=== PATIENT | female | born 1950 | race Caucasian/White ===

== ENCOUNTER 2017-01-03 12:35 | Emergency (ER) | payer BC, MEDICARE ==
--- NOTE | ~2017-01-03 | CR63 ---
[facility]. [facility] A Service of [facility] & [facility] RADIOLOGY TEXT RESULTS PATIENT: AUBREE MARCANO LOCATION: SED : 50 UNIT #: [id number] AGE: [address]: German Troncoso MD SEX: F ORDER DR: [id number] [place] [id number] E MR#: [id number] Acc #: [id number] NAME: AUBREE MARCANO. : 1950 SEX: F STUDY DATE/TIME: 01/03/2017 14:18 UNIT: SED ROOM: STUDY DESCRIPTION: CR Chest 2 View Attending Physician: German Troncoso M.D. Ordering Physician: German Troncoso M.D. Primary Care Physician: Madi Norwood III, M.D. MEDICAL IMAGING REPORT This report is preliminary unless electronic signature is present. EXAM Chest x-ray 01/03/2017 INDICATION Chest pain, shortness of air, cough, congestion and dizziness for 1 month. FINDINGS 2 views of the chest are compared with 12/29/2014. Cardiac and mediastinal contours are normal. Granulomatous calcification noted left upper lobe. The lungs are otherwise clear. No pneumothorax is seen. IMPRESSION No active disease. Dictated by... Madi Church Jr., M.D. THIS IS AN ELECTRONICALLY VERIFIED REPORT Madi Church Jr., M.D. at 01/03/2017 10:33 PM INOCENCIO/marisol TD: 01/03/2017 16:09 JOB #: [id number] MEDICAL IMAGING REPORT Page 1 of 1
[~2017-01-03 12:35] MED LIST: ALBUTEROL INHALER INH; ANTIVERT PO; ASPIRIN PO; ASPIRIN81 M2 PO; MEDROL DOSEPAK4 MG PO; NIACIN PO; NO MEDICATIONS; VICODIN 5/1 TAB 5/50 PO; VICODIN 5/500 T1 TAB PO; VITAMIN B12-FO1 EACH PO; ZITHROMAX PO; ZOFRAN PO
== END 2017-01-03 15:43 | disposition home or self-care (01) ==
LOC: SED 12:35
DX: J20.9 Acute bronchitis, unspecified (principal)
CPT/HCPCS: 71020; 94640; 99284